=== PATIENT | male | born 1980 | race Native Hawaiian/Other Pacific Islander ===

== ENCOUNTER 2021-07-27 22:00 | Emergency (ER) | payer BC ==
[~2021-07-27] VITALS: Ht 175.3 cm; Wt 95.3 kg
[~2021-07-27 22:00] MED LIST: ALLEGRA ALRG180 M1 PO; FLUT0.05 NAS; LEVAQUIN500 MG OR
[2021-07-27] MEDS ORDERED: 904272561 PO (22:36)
[2021-07-27] MEDS ORDERED: VALACYCLOVIR HYD1 GM PO (22:36)
[2021-07-27 23:09] VITALS: BP 130/86; TEMP 98.6
== END 2021-07-27 23:09 | disposition home or self-care (01) ==
LOC: ED 22:00
DX: L03.114 Cellulitis of left upper limb (principal); B95.7 Other staphylococcus as the cause of diseases classified elsewhere; B00.89 Other herpesviral infection; B00.1 Herpesviral vesicular dermatitis
CPT/HCPCS: 96372; 99283; J0696